=== PATIENT | female | born 1945 | race Caucasian/White ===

== ENCOUNTER 2021-03-20 10:57 | Emergency (ER) | payer BC ==
[2021-03-20 11:13] VITALS: BP 138/70; PULSE 58; TEMP 97.8; BMI 25.6
== END 2021-03-20 11:39 | disposition home or self-care (01) ==
LOC: FER 10:57
DX: S61.217A Laceration without foreign body of left little finger without damage to nail, initial encounter (principal)
CPT/HCPCS: 99282-25